=== PATIENT | male | born 1965 | race Caucasian/White ===

== ENCOUNTER 2016-10-05 04:55 | Emergency (ER) | payer MEDICAID ==
[~2016-10-05] VITALS: Ht 172.7 cm; Wt 104.3 kg
[2016-10-05 05:00] VITALS: BP 141/98; PULSE 52; RESP 18; TEMP 97.4; O2SAT 99
--- NOTE | 2016-10-05 05:00 | NUR ---
Patient to ER bed 05 to gown for evaluation. Side rails up. Report given to JESS Louis.
--- NOTE | 2016-10-05 05:00 | NUR ---
Patient is here for abd pain and grown pain and thnks he has a kidney stone.
--- NOTE | 2016-10-05 05:03 | NUR ---
Patient was able to pass Kidney stone and I was able collect the stone. MD was made aware.
--- NOTE | 2016-10-05 05:05 | NUR ---
ER at bedside examining patient.
[2016-10-05] MEDS ORDERED: KETOROLAC TROMETHAMINE 30 MG VIAL IVP ONE (05:30)
[2016-10-05 05:40] VITALS: BP 141/98; PULSE 52; RESP 18; TEMP 97.4; O2SAT 99
--- NOTE | 2016-10-05 05:40 | NUR ---
Patient given written and verbal discharge instructions and verbalizes understanding. ER MD discussed with patient the results and treatment provided. Patient in stable condition. ID arm band removed. Rx of [place] given. Patient educated on pain management and to follow up with PMD. Pain Scale 0/10. Opportunity for questions provided and answered.
[2016-10-05 05:41] LABS: BILIRUBIN,URINE NEGATIVE (NEGATIVE); BLOOD, URINE 3+ (NEGATIVE); COLOR,URINE YELLOW (YELLOW); GLUCOSE,URINE NEGATIVE (NEGATIVE); KETONES,URINE NEGATIVE (NEGATIVE); LEUKOCYTE ESTERASE ,URINE NEGATIVE (NEGATIVE); NITRITE, URINE NEGATIVE (NEGATIVE); PH,URINE 5.5 (5.0-8.0); PROTEIN URINE NEGATIVE (NEGATIVE); UROBILINOGEN,URINE 0.2 (0.2-1.0)
[2016-10-05 05:58] LABS: CLARITY/URINE HAZY (CLEAR)
[2016-10-05 06:07] LABS: BACTERIA,URINE FEW /HPF (None Seen); RBC,URINE 80-100 /HPF (0-3); WBC,URINE 0-3 /HPF (0-3)
[2016-10-05 06:08] LABS: MUCUS,URINE None Seen /LPF (None Seen)
== END 2016-10-05 05:40 | disposition home or self-care (01) ==
LOC: SED 04:55
DX: N20.0 Calculus of kidney (principal); D68.51 Activated protein C resistance; Z86.718 Personal history of other venous thrombosis and embolism
CPT/HCPCS: 81000-TC; 99283

== ENCOUNTER 2017-10-26 21:15 | Emergency (ER) | payer MEDICAID ==
[~2017-10-26] VITALS: Ht 172.7 cm; Wt 104.3 kg
[2017-10-26 21:32] VITALS: BP_SYST 116
[2017-10-26] MEDS ORDERED: NACL 0.9% 1,000 ML IV ONE (22:18)
[2017-10-26] MEDS ORDERED: KETOROLAC TROMETHAMINE 30 MG VIAL IVP ONE (22:30)
[2017-10-26 22:38] LABS: BASOPHILS % (AUTO) 0.4 % (0.0-2.0); EOSINOPHILS # (AUTO) 0.2 K/uL (0.0-0.4); EOSINOPHILS % (AUTO) 2.6 % (0.0-4.0); HEMATOCRIT 40.8 % (36-54); HEMOGLOBIN 13.6 g/dL (14.0-18.0); LYMPHOCYTES % (AUTO) 34.6 % (20.5-51.5); MEAN CORPUSCULAR HEMOGLOBIN 30 pg (27-31); MEAN CORPUSCULAR HGB CONC 33 % (32-36); MEAN CORPUSCULAR VOLUME 90 fL (79.0-98.0); MONOCYTES # (AUTO) 0.7 K/uL (0.0-1.0); MONOCYTES % (AUTO) 11.5 % (1.7-9.3); NEUTROPHILS # (AUTO) 2.9 K/uL (1.8-7.7); NEUTROPHILS % (AUTO) 50.9 % (40.0-70.0); PLATELET COUNT (AUTO) 253 K/uL (130-430); RED BLOOD CELL COUNT(AUTO) 4.53 MIL/uL (4.2-6.2); RED CELL DISTRIBUTION WIDTH 12.9 % (9.0-15.0); WHITE BLOOD COUNT (AUTO) 5.8 K/uL (4.8-10.8)
[2017-10-26 22:52] LABS: BILIRUBIN,URINE NEGATIVE (NEGATIVE); BLOOD, URINE 3+ (NEGATIVE); CLARITY/URINE CLEAR (CLEAR); COLOR,URINE YELLOW (YELLOW); GLUCOSE,URINE NEGATIVE (NEGATIVE); KETONES,URINE NEGATIVE (NEGATIVE); LEUKOCYTE ESTERASE ,URINE NEGATIVE (NEGATIVE); NITRITE, URINE NEGATIVE (NEGATIVE); PH,URINE 7.5 (5.0-8.0); PROTEIN URINE NEGATIVE (NEGATIVE); UROBILINOGEN,URINE 0.2 (0.2-1.0)
[2017-10-26 23:00] LABS: CALCIUM 9.5 mg/dL (8.4-11.0); CREATININE 1.04 mg/dL (0.55-1.30)
[2017-10-26 23:06] LABS: ALBUMIN 3.4 g/dL (3.4-4.8); TOTAL BILIRUBIN 0.4 mg/dL (0.0-1.0)
[2017-10-26 23:12] LABS: RBC,URINE >100 /HPF (0-3)
[2017-10-26 23:13] LABS: BACTERIA,URINE FEW /HPF (None Seen); WBC,URINE 0-3 /HPF (0-3)
[2017-10-26 23:23] LABS: PROTHROMBIN TIME 42.1 SECS (9.5-12.5)
[2017-10-26 23:24] LABS: INR 4.1 (0.80-1.20)
[2017-10-27 00:16] VITALS: BP_SYST 112
== END 2017-10-27 00:16 | disposition home or self-care (01) ==
LOC: SED 21:15
DX: T45.511A Poisoning by anticoagulants, accidental (unintentional), initial encounter (principal); R10.9 Unspecified abdominal pain; Z79.01 Long term (current) use of anticoagulants; Z86.2 Personal history of diseases of the blood and blood-forming organs and certain disorders involving the immune mechanism; Y92.89 Other specified places as the place of occurrence of the external cause; Z86.718 Personal history of other venous thrombosis and embolism
CPT/HCPCS: 36415; 74176; 80053; 81000; 83690; 85025; 85610; 85730; 96361; 96374; 99285; J1885; J7030